=== PATIENT | male | born 1995 ===

== ENCOUNTER 2019-02-15 22:05 | Emergency (ER) | payer BC ==
[2019-02-15 22:12] VITALS: BP 120/62
[2019-02-15] MEDS ORDERED: TDAP ADULT 0.5 ML INJ (BOOSTRIX) IM ONE (22:13)
--- NOTE | 2019-02-15 23:11 | EDPHY ---
H & P Time Seen by Provider: 02/15/19 22:16 HPI/ROS: CHIEF COMPLAINT: Finger laceration HISTORY OF PRESENT ILLNESS: Patient states he was opening a package of [employer] mix with a kitchen knife when he cut his left index finger. No other injuries. Normal sensation and movement per patient. Bleeding controlled. Unknown last tetanus. REVIEW OF SYSTEMS: Negative except per HPI. General Appearance: Alert, no distress. Eyes: Pupils equal and round no icterus Respiratory: No respiratory distress Neurological: Awake, alert, no focal deficits. Skin: Warm and dry, no rashes. Musculoskeletal: Neck is supple nontender. Extremities are symmetrical, full range of motion, no edema. Left index finger with 1 cm laceration on the ulnar aspect of the distal phalynx. Nail not involved. Psychiatric: Patient is oriented X 3, there is no agitation. Medical/surgical history: Noncontributory Social history: Unknown last tetanus Smoking Status: Never smoked Constitutional: Initial Vital Signs Temperature (C) 36.6 C 02/15/19 22:11 Heart Rate 75 02/15/19 22:11 Respiratory Rate 18 02/15/19 22:11 Blood Pressure 120/62 02/15/19 22:11 O2 Sat (%) 97 02/15/19 22:11 O2 Delivery Mode Room Air Allergies/Adverse Reactions: No Known Allergies Allergy (Unverified 02/15/19 22:11) Home Medications: Medication Instructions Recorded NK [No Known Home Meds] 02/15/19 Medical Decision Making Procedures: Procedure: Laceration repair. 3.5 mils of 2% lidocaine injected as digital block. Repeat injection with 2.5 mils of 0.5% bupivacaine as initial digital block ineffective. Verbal consent was obtained from the patient. The 1 cm left index finger laceration was anesthetized in the usual fashion. The wound was irrigated, draped and explored to its base with a gloved finger. There were no deep structures involved. No tendon injury was identified. The wound was repaired with 5 0 Prolene. The wound repair was 4 simple interrupted. The procedure was performed by myself. Differential Diagnosis: Laceration repair as documented above. No immunocompromise or other barriers to healing. No deep structures involved. Wound care and suture removal discussed with patient. Signs and symptoms of infection reviewed as well. - Data Points Medications Given: Discontinued Medications Diphtheria/Tetanus/Acell Pertussis (Boostrix) 0.5 ml IM .ONCE ONE Stop: 02/15/19 22:14 Last Admin: 02/15/19 22:25 Dose: 0.5 ml Departure - Departure Clinical Impression: Laceration Condition: Good Instructions: Finger Laceration (ED) Additional Instructions: Keep clean and dry as discussed. Return if any concerns for infection otherwise suture removal in 10-14 days.
== END 2019-02-15 23:15 | disposition home or self-care (01) ==
LOC: CED 22:05
PROC: 0HQGXZZ Repair Left Hand Skin, External Approach (ICD-10-PCS; principal; 2019-02-15)
DX: S61.211A Laceration without foreign body of left index finger without damage to nail, initial encounter (principal); W26.0XXA Contact with knife, initial encounter; Y93.G1 Activity, food preparation and clean up; Y92.000 Kitchen of unspecified non-institutional (private) residence as the place of occurrence of the external cause; Z23 Encounter for immunization
CPT/HCPCS: 90471-ER; 99283-ER